=== PATIENT | male | born 1975 | race Hispanic/Latino ===

== ENCOUNTER 2017-05-22 18:49 | Observation (INO) | payer OTHER ==
[2017-05-22] MEDS ORDERED: Sodium Chloride 0.9% 1,000 ML IV STA (19:40)
[2017-05-22] MEDS ORDERED: Iohexol 240 (50 ml) PO ONE (19:41)
[2017-05-22 20:25] LABS: VENOUS BLOOD GAS BASE EXCESS 2.7 mmol/L (0.0-2.0); VENOUS BLOOD GAS PCO2 44 mmHg (40-60); VENOUS BLOOD GAS PO2 33 mm/Hg (30-55); VENOUS BLOOD PH 7.41 (7.32-7.43)
[2017-05-22 20:26] LABS: BASO # 0.1 K/uL (0.0-0.2); BASO % 0.5 % (0.0-2.0); EOS # 0.2 K/uL (0.0-0.7); EOS % 1.4 % (0.0-4.0); HEMOGLOBIN 15.5 g/dL (12.0-18.0); LYMPH % 14.5 % (20.0-40.0); MEAN CELL VOLUME 89.6 fl (80.0-94.0); MEAN CORPUSCULAR HEMOGLOBIN 30.1 pg (27.0-31.0); MEAN CORPUSCULAR HGB CONC 33.6 g/dL (33.0-37.0); MONO # 1.2 K/uL (0.0-0.8); MONO % 8.5 % (0.0-10.0); NEUT # 10.2 K/uL (1.8-7.0); NEUT % 75.1 % (50.0-75.0); NRBC % 0.1 % (0.0-0.0); RBC 5.15 Mil/uL (4.40-5.90); RED CELL DISTRIBUTION WIDTH 12.3 % (11.5-14.5); WHITE BLOOD COUNT 13.5 K/uL (4.8-10.8)
[2017-05-22] MEDS ORDERED: Iohexol 240 (50 ml) ONE (20:31)
--- NOTE | 2017-05-22 20:37 | ED PDOC ---
"HPI: Abdomen Time Seen by Provider: 05/22/17 19:28 Chief Complaint (Nursing): Abdominal Pain Chief Complaint (Provider): Abdominal Pain History Per: Patient History/Exam Limitations: no limitations Onset/Duration Of Symptoms: Days (x3) Current Symptoms Are (Timing): Still Present Additional Complaint(s): 41 year old male with no significant past medical history, who presents to the ED after being referred by Buchanan for leukocytosis and abdominal pain x3 days. States since Friday he has had diffuse crampy abdominal pain that's worse on his left side. Says current abdominal pain is 6/10. Reports 1 episode of vomiting yesterday, and no appetite or bowel movements today. Reports urinating today with no urinary symptoms. States tmax at home was 99. Reports taking Zofran and as prescribed by Buchanan. Past Medical History Reviewed: Historical Data, Nursing Documentation, Vital Signs Vital Signs: Last Vital Signs Temp 98.4 F 05/23/17 01:33 Pulse 86 05/23/17 01:33 Resp 20 05/23/17 01:33 BP 145/90 05/23/17 01:33 Pulse Ox 96 05/23/17 01:33 - Medical History PMH: No Chronic Diseases - Surgical History Surgical History: Hernia Repair (inguinal, 20 years ago) - Family History Family History: States: Unknown Family Hx - Home Medications Home Medications: Ambulatory Orders Medication Instructions Recorded No Known Home Med 05/23/17 - Allergies Allergies/Adverse Reactions: Allergies Allergy/AdvReac Type Severity Reaction Status Date / Time No Known Allergies Allergy Verified 05/22/17 19:01 Review of Systems ROS Statement: Except As Marked, All Systems Reviewed And Found Negative Constitutional: Negative for: Fever Gastrointestinal: Positive for: Vomiting, Abdominal Pain Genitourinary Male: Negative for: Dysuria, Frequency, Incontinence, Hematuria Physical Exam - Reviewed Nursing Documentation Reviewed: Yes - Physical Exam Appears: Positive for: Well, Non-toxic, No Acute Distress Head Exam: Positive for: ATRAUMATIC, NORMAL INSPECTION, NORMOCEPHALIC Skin: Positive for: Normal Color, Warm, Dry Eye Exam: Positive for: EOMI, Normal appearance, PERRL Neck: Positive for: Normal, Painless ROM, Supple Cardiovascular/Chest: Positive for: Regular Rate, Rhythm. Negative for: Murmur Respiratory: Positive for: Normal Breath Sounds. Negative for: Respiratory Distress Gastrointestinal/Abdominal: Positive for: Tenderness (mild diffuse left worse than right, no RLQ). Negative for: Mass, Guarding, Rebound Back: Positive for: Normal Inspection. Negative for: L CVA Tenderness, R CVA Tenderness, Vertebral Tenderness Extremity: Positive for: Normal ROM. Negative for: Pedal Edema, Deformity Neurologic/Psych: Positive for: Alert, Oriented (x3). Negative for: Motor/ Sensory Deficits - Laboratory Results Result Diagrams: 05/22/17 20:13 05/22/17 20:13 - ECG O2 Sat by Pulse Oximetry: 98 (RA) Pulse Ox Interpretation: Normal Medical Decision Making Medical Decision Making: Time: 19:40 Patient referred by Buchanan for abdominal pain and leukocytosis. Concerned for possible diverticulitis vs colitis vs less likely pancreatitis or appendicitis. Will require blood work and CT. Addendum created by Rakan Caraballo MD on 05/22/2017 11:57 PM Eastern Time ([place] & [place]) THIS REPORT CONTAINS FINDINGS THAT MAY BE CRITICAL TO PATIENT CARE. The findings were verbally communicated via telephone conference with João Munoz at 11:57 PM EDT on 05/22/2017. The findings were acknowledged and understood. Initial Report created on 05/22/2017 11:52 PM Eastern Time ([place] & [place]) EXAM: CT Abdomen and Pelvis With Intravenous Contrast CLINICAL HISTORY: 41 years old, male; Pain; Abdominal pain; Localized; Left; Prior surgery; Surgery date: 6+ months; Surgery type: Inguinal hernia repair 20yrs ago; Additional info: Diffuse abd pain, l sided>r sided TECHNIQUE: Axial computed tomography images of the abdomen and pelvis with intravenous contrast. All CT scans at this facility use one or more dose reduction techniques, viz.: automated exposure control; ma/kV adjustment per patient size (including targeted exams where dose is matched to indication; i.e. head); or iterative reconstruction technique. Coronal and sagittal reformatted images were created and reviewed. CONTRAST: 95 mL of [id number] administered intravenously. COMPARISON: No relevant prior studies available. FINDINGS: Lower thorax: Minimal atelectasis. Small hiatal hernia. ABDOMEN: Liver: Probable mild fatty infiltration. < 0.5 cm lesion. Gallbladder and bile ducts: No calcified stones. No ductal dilation. Pancreas: Mild stranding/fascial thickening about tail of pancreas. No ductal dilation. No definite pancreatic necrosis. No discrete peripancreatic collection. Spleen: No splenomegaly. Adrenals: No mass. CUATE LIGHT | Final Radiology Report CONFIDENTIALITY STATEMENT This report is intended only for use by the referring physician, and only in accordance with law. If you received this in error, call [phone]. Page 2 of 2 Kidneys and ureters: 2.5 x 3.0 by 3.0 cm heterogeneous lesion within right kidney. No hydronephrosis. Stomach and bowel: Few scattered diverticula within colon. No associated inflammatory stranding. Segmental areas of probable underdistention of LEFT colon. No definite mural thickening. No obstruction. Appendix: Normal caliber. No inflammation. PELVIS: Bladder: Unremarkable. Reproductive: Unremarkable as visualized. ABDOMEN and PELVIS: Intraperitoneal space: No significant fluid collection. No free air. Bones/joints: No acute fracture. Soft tissues: Tiny umbilical hernia containing fat. Vasculature: Patent splenic artery and vein. No aneurysm. Lymph nodes: No pathologically enlarged lymph nodes. IMPRESSION: 1. Acute pancreatitis. 2. Right kidney lesion, indeterminate. Malignancy not excluded. Recommend MRI. 3. Liver lesion. For patients with low to average risk of malignancy, no further follow-up is necessary. For patients with high risk of malignancy (known malignancy that can metastasize or other risk factors), recommend follow-up abdominal CT or MR in 6 months. 4. Incidental/non-acute findings are described above. Spoke with patient regarding his results. States he still feels ill. Discussed case with Dr. Vernon (GI) who states to hydrate patient overnight and can be admitted OBS for re-eval in the AM for pancreatitis. [facility] admit to [facility]. Scribe Attestation: Documented by Jonathan Ford, acting as a scribe for João Fuentes MD. Provider Scribe Attestation: All medical record entries made by the Scribe were at my direction and personally dictated by me. I have reviewed the chart and agree that the record accurately reflects my personal performance of the history, physical exam, medical decision making, and the department course for this patient. I have also personally directed, reviewed, and agree with the discharge instructions and disposition. Disposition - Clinical Impression Clinical Impression: Pancreatitis - Disposition Disposition Time: 00:00 Condition: FAIR"
[2017-05-22 20:43] LABS: ALB/GLOB RATIO 1.2 (1.0-2.1); ALBUMIN 4.5 g/dL (3.5-5.0); ALT/SGPT 60 U/L (21-72); AST/SGOT 26 U/L (17-59); BLOOD UREA NITROGEN 14 mg/dl (9-20); CALCIUM 9.6 mg/dL (8.4-10.2); GFR AFRICAN-AMERICAN > 60; GFR NON-AFRICAN AMERICAN > 60; LIPASE 255 U/L (23-300)
[2017-05-22 20:49] LABS: URINE BILIRUBIN NEGATIVE (NEGATIVE); URINE BLOOD NEGATIVE (NEGATIVE); URINE CLARITY CLEAR (Clear); URINE COLOR YELLOW (YELLOW); URINE GLUCOSE (UA) NEG (Normal); URINE LEUKOCYTE ESTERASE NEG Leu/uL (Negative); URINE PROTEIN 30 mg/dL (NEGATIVE); URINE UROBILINOGEN 0.2-1.0 mg/dL (0.2-1.0)
[2017-05-22] MEDS ORDERED: Iohexol 300 100 ML IJ ONE (21:24)
[2017-05-23] MEDS ORDERED: Lactated Ringer's 1,000 ML IV STA (00:07)
[2017-05-23 01:34] VITALS: RESP 20
[2017-05-23 08:11] VITALS: BP 153/95; PULSE 100; TEMP 98.3; O2SAT 95
--- NOTE | 2017-05-23 08:29 | CP.PCM.CON ---
<Mauricio Viramontes - Last Filed: 05/23/17 09:22> History of Present Illness - History of Present Illness History of Present Illness: PGY5 GI Fellow Consult Note Patient is a 41yo male without significant past medical history who presented to the ED for abdominal pain. The patient developed diffuse, cramping abdominal pain on Friday morning without obvious preceding event and states he was in his usual state of health on Friday. He suddenly noticed dull, diffuse cramping which has become more constant and severe over the last 3 days. On questioning, he also admits that he has been taking two Tums nightly for the last 1-2 months for "heartburn" and reflux symptoms that have been waking him from sleep. Admits to occasional LUQ abdominal pain and decreased appetite when this occurs. He went to his PCP who noted leukocytosis on his CBC and referred him to the ED for continued care. Per the ED report, a CT was performed and revealed some slight peripancreatic stranding near the tail of the pancreas possibly consistent with acute pancreatitis. Patient denies any recent EtOH use , does mention a possibly history of dyslipidemia. The patient was given IVF@ 200cc/hr and admitted to the floor. Currently, he states his pain is improved and his appetite improved. PMHx: See HPI PSHx: Left inguinal hernia repair FHx: Discussed with patient and denies any significant family history Social: Rare EtOH use (none recent), denies tobacco, illicit drug use Endo: No prior endoscopic evaluations 12 system ROS performed and negative except where stated. Past Patient History - Past Medical History & Family History Past Medical History?: No - Past Social History Smoking Status: Never Smoked - MUSCULOSKELETAL/RHEUMATOLOGICAL Hx Falls: No - PSYCHIATRIC Hx Substance Use: No - SURGICAL HISTORY Hx Herniorrhaphy: Yes (inguinal,20 yrs ago) - ANESTHESIA Hx Anesthesia: Yes Hx Anesthesia Reactions: No Meds Allergies/Adverse Reactions: Allergies Allergy/AdvReac Type Severity Reaction Status Date / Time No Known Allergies Allergy Verified 05/22/17 19:01 - Medications Medications: Current Medications Acetaminophen (Tylenol 325mg Tab) 650 mg PO Q4 PRN PRN Reason: Headache Lactated Ringer's (Lactated Ringer's) 1,000 mls @ 200 mls/hr IV .Q5H ABDULKADIR Ketorolac Tromethamine (Toradol) 15 mg IVP Q6 PRN PRN Reason: pain 6-10 Ondansetron HCl (Zofran Inj) 4 mg IVP Q6 PRN PRN Reason: Nausea/Vomiting Pantoprazole Sodium (Protonix Ec Tab) 40 mg PO DAILY ABDULKADIR Physical Exam - Constitutional Appears: Non-toxic, No Acute Distress - Eye Exam Eye Exam: EOMI, PERRL - ENT Exam ENT Exam: Mucous Membranes Moist - Respiratory Exam Respiratory Exam: Clear to Auscultation Bilateral. absent: Rales, Rhonchi, Wheezes - Cardiovascular Exam Cardiovascular Exam: RRR, +S1, +S2 - GI/Abdominal Exam GI & Abdominal Exam: Normal Bowel Sounds, Soft, Tenderness (epigastric, LUQ). absent: Distended, Firm, Guarding, Organomegaly, Rigid - Extremities Exam Extremities exam: Positive for: normal inspection. Negative for: pedal edema - Neurological Exam Neurological exam: Alert, Oriented x3 - Psychiatric Exam Psychiatric exam: Normal Affect, Normal Mood - Skin Skin Exam: Dry, Warm Results - Vital Signs Recent Vital Signs: Last Vital Signs Temp 98.3 F 05/23/17 08:10 Pulse 100 H 05/23/17 08:10 Resp 20 05/23/17 08:10 BP 153/95 H 05/23/17 08:10 Pulse Ox 95 05/23/17 08:10 - Labs Result Diagrams: 05/23/17 08:58 05/23/17 08:58 Labs: Laboratory Results - last 24 hr 05/22/17 05/22/17 05/22/17 20:13 20:13 20:19 WBC 13.5 H RBC 5.15 Hgb 15.5 Hct 46.2 MCV 89.6 MCH 30.1 MCHC 33.6 RDW 12.3 Plt Count 238 MPV 9.0 Neut % (Auto) 75.1 H Lymph % (Auto) 14.5 L Waller % (Auto) 8.5 Eos % (Auto) 1.4 Baso % (Auto) 0.5 Neut # (Auto) 10.2 H Lymph # (Auto) 2.0 Waller # (Auto) 1.2 H Eos # (Auto) 0.2 Baso # (Auto) 0.1 pO2 33 VBG pH 7.41 VBG pCO2 44 VBG HCO3 26.1 VBG Total CO2 29.3 H VBG O2 Sat (Calc) 70.3 H VBG Base Excess 2.7 H VBG Potassium 4.0 Glucose 90 Lactate 1.6 FiO2 21.0 Sodium 144 139.0 Potassium 3.9 Chloride 99 104.0 Carbon Dioxide 23 Anion Gap 26 H BUN 14 Creatinine 0.8 Est GFR ( Amer) > 60 Est GFR (Non-Af Amer) > 60 Random Glucose 93 Calcium 9.6 Total Bilirubin 0.7 AST 26 ALT 60 Alkaline Phosphatase 101 Total Protein 8.3 H Albumin 4.5 Globulin 3.8 Albumin/Globulin Ratio 1.2 Lipase 255 Venous Blood Potassium 4.0 Urine Color Urine Clarity Urine pH Ur Specific [place] Urine Protein Urine Glucose (UA) Urine Ketones Urine Blood Urine Nitrate Urine Bilirubin Urine Urobilinogen Ur Leukocyte Esterase Urine RBC (Auto) Urine Microscopic WBC 05/22/17 20:21 WBC RBC Hgb Hct MCV MCH MCHC RDW Plt Count MPV Neut % (Auto) Lymph % (Auto) Waller % (Auto) Eos % (Auto) Baso % (Auto) Neut # (Auto) Lymph # (Auto) Waller # (Auto) Eos # (Auto) Baso # (Auto) pO2 VBG pH VBG pCO2 VBG HCO3 VBG Total CO2 VBG O2 Sat (Calc) VBG Base Excess VBG Potassium Glucose Lactate FiO2 Sodium Potassium Chloride Carbon Dioxide Anion Gap BUN Creatinine Est GFR ( Amer) Est GFR (Non-Af Amer) Random Glucose Calcium Total Bilirubin AST ALT Alkaline Phosphatase Total Protein Albumin Globulin Albumin/Globulin Ratio Lipase Venous Blood Potassium Urine Color Yellow Urine Clarity Clear Urine pH 6.0 Ur Specific [place] 1.025 Urine Protein 30 Urine Glucose (UA) Neg Urine Ketones 20 Urine Blood Negative Urine Nitrate Negative Urine Bilirubin Negative Urine Urobilinogen 0.2-1.0 Ur Leukocyte Esterase Neg Urine RBC (Auto) < 1 Urine Microscopic WBC 1 Assessment & Plan - Assessment and Plan (Free Text) Assessment: Patient is a 41yo male without significant past medical history who presented to the ED for abdominal pain. -Abdominal pain; ddx includes acute pancreatitis, PUD, less likely infectious enteritis/colitis Plan: -Lipase WNL; report of CT from ED showing mild pancreatic tail stranding suggesting acute pancreatitis -Given mild pain/imaging - may have case of mild acute pancreatitis, responding appropriately to IVF resuscitation -Agree with IVF @200cc/hr -Denies EtOH use, no Vit/mineral supplements or OTC meds; no new medications to suggest medication induced pancreatitis -Check lipid panel -Consider outpatient U/S RUQ to R/O gallstones which can be missed on CT; however blood work not supportive of this diagnosis -Advance diet as tolerated -Recommend PPI 40mg PO QAM 30 min before breakfast for one month given dyspepsia , nighttime reflux symptoms -Outpatient GI follow up recommended with possible need for EGD in the future - Date & Time Date: 05/23/17 Time: 07:20 <Jose Alfredo Vernon - Last Filed: 05/23/17 14:43> Meds - Medications Medications: Current Medications Acetaminophen (Tylenol 325mg Tab) 650 mg PO Q4 PRN PRN Reason: Headache Last Admin: 05/23/17 13:22 Dose: 650 mg Atorvastatin Calcium (Lipitor) 20 mg PO HS ABDULKADIR Lactated Ringer's (Lactated Ringer's) 1,000 mls @ 200 mls/hr IV .Q5H [facility] Last Admin: 05/23/17 08:37 Dose: 200 mls/hr Ketorolac Tromethamine (Toradol) 15 mg IVP Q6 PRN PRN Reason: pain 6-10 Ondansetron HCl (Zofran Inj) 4 mg IVP Q6 PRN PRN Reason: Nausea/Vomiting Pantoprazole Sodium (Protonix Ec Tab) 40 mg PO DAILY [facility] Last Admin: 05/23/17 08:32 Dose: 40 mg Results - Vital Signs Recent Vital Signs: Last Vital Signs Temp 98.3 F 05/23/17 08:10 Pulse 100 H 05/23/17 08:10 Resp 20 05/23/17 08:10 BP 153/95 H 05/23/17 08:10 Pulse Ox 95 05/23/17 08:10 - Labs Result Diagrams: 05/23/17 08:58 05/23/17 08:58 Labs: Laboratory Results - last 24 hr 05/22/17 05/22/17 05/22/17 20:13 20:13 20:19 WBC 13.5 H RBC 5.15 Hgb 15.5 Hct 46.2 MCV 89.6 MCH 30.1 MCHC 33.6 RDW 12.3 Plt Count 238 MPV 9.0 Neut % (Auto) 75.1 H Lymph % (Auto) 14.5 L Waller % (Auto) 8.5 Eos % (Auto) 1.4 Baso % (Auto) 0.5 Neut # (Auto) 10.2 H Lymph # (Auto) 2.0 Waller # (Auto) 1.2 H Eos # (Auto) 0.2 Baso # (Auto) 0.1 pO2 33 VBG pH 7.41 VBG pCO2 44 VBG HCO3 26.1 VBG Total CO2 29.3 H VBG O2 Sat (Calc) 70.3 H VBG Base Excess 2.7 H VBG Potassium 4.0 Glucose 90 Lactate 1.6 FiO2 21.0 Sodium 144 139.0 Potassium 3.9 Chloride 99 104.0 Carbon Dioxide 23 Anion Gap 26 H BUN 14 Creatinine 0.8 Est GFR ( Amer) > 60 Est GFR (Non-Af Amer) > 60 Random Glucose 93 Calcium 9.6 Total Bilirubin 0.7 AST 26 ALT 60 Alkaline Phosphatase 101 Total Protein 8.3 H Albumin 4.5 Globulin 3.8 Albumin/Globulin Ratio 1.2 Triglycerides Cholesterol LDL Cholesterol Direct HDL Cholesterol Lipase 255 Venous Blood Potassium 4.0 Urine Color Urine Clarity Urine pH Ur Specific [place] Urine Protein Urine Glucose (UA) Urine Ketones Urine Blood Urine Nitrate Urine Bilirubin Urine Urobilinogen Ur Leukocyte Esterase Urine RBC (Auto) Urine Microscopic WBC 05/22/17 05/23/17 05/23/17 20:21 08:58 08:58 WBC 11.7 H RBC 4.58 Hgb 13.7 Hct 41.4 MCV 90.4 MCH 30.0 MCHC 33.2 RDW 12.4 Plt Count 221 MPV 8.8 Neut % (Auto) 70.4 Lymph % (Auto) 18.5 L Waller % (Auto) 7.5 Eos % (Auto) 3.1 Baso % (Auto) 0.5 Neut # (Auto) 8.2 H Lymph # (Auto) 2.2 Waller # (Auto) 0.9 H Eos # (Auto) 0.4 Baso # (Auto) 0.1 pO2 VBG pH VBG pCO2 VBG HCO3 VBG Total CO2 VBG O2 Sat (Calc) VBG Base Excess VBG Potassium Glucose Lactate FiO2 Sodium 140 Potassium 4.3 Chloride 101 Carbon Dioxide 24 Anion Gap 19 BUN 16 Creatinine 0.8 Est GFR ( Amer) > 60 Est GFR (Non-Af Amer) > 60 Random Glucose 79 Calcium 8.9 Total Bilirubin 0.8 AST 29 ALT 55 Alkaline Phosphatase 83 Total Protein 7.0 Albumin 3.8 Globulin 3.2 Albumin/Globulin Ratio 1.2 Triglycerides Cholesterol LDL Cholesterol Direct HDL Cholesterol Lipase 162 Venous Blood Potassium Urine Color Yellow Urine Clarity Clear Urine pH 6.0 Ur Specific [place] 1.025 Urine Protein 30 Urine Glucose (UA) Neg Urine Ketones 20 Urine Blood Negative Urine Nitrate Negative Urine Bilirubin Negative Urine Urobilinogen 0.2-1.0 Ur Leukocyte Esterase Neg Urine RBC (Auto) < 1 Urine Microscopic WBC 1 05/23/17 10:12 WBC RBC Hgb Hct MCV MCH MCHC RDW Plt Count MPV Neut % (Auto) Lymph % (Auto) Waller % (Auto) Eos % (Auto) Baso % (Auto) Neut # (Auto) Lymph # (Auto) Waller # (Auto) Eos # (Auto) Baso # (Auto) pO2 VBG pH VBG pCO2 VBG HCO3 VBG Total CO2 VBG O2 Sat (Calc) VBG Base Excess VBG Potassium Glucose Lactate FiO2 Sodium Potassium Chloride Carbon Dioxide Anion Gap BUN Creatinine Est GFR ( Amer) Est GFR (Non-Af Amer) Random Glucose Calcium Total Bilirubin AST ALT Alkaline Phosphatase Total Protein Albumin Globulin Albumin/Globulin Ratio Triglycerides 78 Cholesterol 241 H LDL Cholesterol Direct 184 H HDL Cholesterol 36 Lipase Venous Blood Potassium Urine Color Urine Clarity Urine pH Ur Specific [place] Urine Protein Urine Glucose (UA) Urine Ketones Urine Blood Urine Nitrate Urine Bilirubin Urine Urobilinogen Ur Leukocyte Esterase Urine RBC (Auto) Urine Microscopic WBC Assessment & Plan - Assessment and Plan (Free Text) Plan: Patient seen and examined. Agree with above assessment.
[2017-05-23] MEDS: Lactated Ringer's 1,000 ML IV SCH ×2 (08:37→15:39)
[2017-05-23] MEDS ORDERED: Pantoprazole 40 mg EC Tab PO SCH (09:00)
[2017-05-23 09:04] LABS: BASO # 0.1 K/uL (0.0-0.2); BASO % 0.5 % (0.0-2.0); EOS # 0.4 K/uL (0.0-0.7); EOS % 3.1 % (0.0-4.0); HEMOGLOBIN 13.7 g/dL (12.0-18.0); LYMPH # 2.2 K/uL (1.0-4.3); LYMPH % 18.5 % (20.0-40.0); MEAN CELL VOLUME 90.4 fl (80.0-94.0); MEAN CORPUSCULAR HGB CONC 33.2 g/dL (33.0-37.0); MEAN PLATELET VOLUME 8.8 fl (7.2-11.7); MONO # 0.9 K/uL (0.0-0.8); MONO % 7.5 % (0.0-10.0); NEUT # 8.2 K/uL (1.8-7.0); NEUT % 70.4 % (50.0-75.0); RBC 4.58 Mil/uL (4.40-5.90); RED CELL DISTRIBUTION WIDTH 12.4 % (11.5-14.5); WHITE BLOOD COUNT 11.7 K/uL (4.8-10.8)
--- NOTE | 2017-05-23 09:09 | CT ---
PROCEDURE: CT Abdomen and Pelvis with contrast HISTORY: diffuse abd pain, L sided>R sided COMPARISON: None. TECHNIQUE: Following oral and intravenous contrast administration, a CT examination of the abdomen and pelvis performed from the domes of the diaphragms to the symphysis pubis with reformatted datasets provided not only axial but also sagittal and coronal series. Contrast dose: Omnipaque 300, 95 cc Radiation dose: Total exam DLP = 1070.27 mGy-cm. This CT exam was performed using one or more of the following dose reduction techniques: Automated exposure control, adjustment of the mA and/or kV according to patient size, and/or use of iterative reconstruction technique. FINDINGS: LOWER THORAX: Trace atelectasis identified in the bilateral dependent lung bases. A small hiatal hernia is identified. LIVER: There is a tiny lucency under 1 cm size at the dome of liver, too small to characterize. GALLBLADDER AND BILE DUCTS: Unremarkable. PANCREAS: Pancreas does not appear enlarged and no pancreatic duct dilatation or definitive masses demonstrated, however, there is limited streaky. Pancreatic reaction at the distal body and tail suspicious for potential pancreatitis. Clinically correlate further. No evidence of pancreatic necrosis, pseudocyst or local peripancreatic fluid collection at this time. SPLEEN: Unremarkable. ADRENALS: Unremarkable. No mass. KIDNEYS AND URETERS: Predominately solid lesion is identified at the upper pole right kidney measuring 3.2 x 2.8 cm with the bilateral kidneys otherwise unremarkable. Further characterization by MRI can be performed. Follow-up urological consultation is advised. VASCULATURE: Unremarkable. No aortic aneurysm. BOWEL: Unremarkable. No obstruction. No gross mural thickening. APPENDIX: Normal appendix. PERITONEUM: Unremarkable. No free fluid. No free air. LYMPH NODES: Unremarkable. No enlarged lymph nodes. BLADDER: Unremarkable. REPRODUCTIVE: Unremarkable. BONES: No acute fracture. OTHER FINDINGS: None. IMPRESSION: 1. Findings suspicious for mild pancreatitis as discussed above. No pseudocyst or peripancreatic fluid collection noted. No radiodense cholelithiasis identified in the gallbladder. 2. A 3.2 cm predominantly solid lesion with some cystic components is seen at the upper pole right kidney. Follow-up MRI is advised with and without. Consider urological consultation as well. No obstructive uropathy bilaterally with the left kidney appear unremarkable. 3. Tiny lucency at the dome liver too small to characterize. Follow-up CT can be performed if there is a high risk for malignancy in this patient. Concordant preliminary report from [facility], 05/22/2017.
[2017-05-23 09:22] LABS: ALB/GLOB RATIO 1.2 (1.0-2.1); ALBUMIN 3.8 g/dL (3.5-5.0); ALT/SGPT 55 U/L (21-72); AST/SGOT 29 U/L (17-59); BLOOD UREA NITROGEN 16 mg/dl (9-20); CALCIUM 8.9 mg/dL (8.4-10.2); GFR AFRICAN-AMERICAN > 60; GFR NON-AFRICAN AMERICAN > 60; LIPASE 162 U/L (23-300)
[2017-05-23 10:36] LABS: HDL CHOLESTEROL 36 MG/DL (30-70)
[2017-05-23 10:46] LABS: LDL CHOLESTEROL 184 mg/dL (0-129)
--- NOTE | 2017-05-23 11:22 | CP.PCM.HP ---
History of Present Illness - History of Present Illness History of Present Illness: pt admitted for pancreatitis. ct results noted. gi consult appriciated. pt c/o 2 days of abd pain [place]. n/v yesterday. no f/c, diarrhea bw noted. wbc trending down. lipids elevated. Present on Admission - Present on Admission Any Indicators Present on Admission: No Review of Systems - Gastrointestinal Gastrointestinal: As Per HPI, Abdominal Pain, Nausea, Vomiting Past Patient History - Past Medical History & Family History Past Medical History?: No - Past Social History Smoking Status: Never Smoked - MUSCULOSKELETAL/RHEUMATOLOGICAL Hx Falls: No - PSYCHIATRIC Hx Substance Use: No - SURGICAL HISTORY Hx Herniorrhaphy: Yes (inguinal,20 yrs ago) - ANESTHESIA Hx Anesthesia: Yes Hx Anesthesia Reactions: No Meds Allergies/Adverse Reactions: Allergies Allergy/AdvReac Type Severity Reaction Status Date / Time No Known Allergies Allergy Verified 05/22/17 19:01 Physical Exam - Constitutional Appears: Well, Non-toxic, No Acute Distress - Head Exam Head Exam: ATRAUMATIC, NORMAL INSPECTION, NORMOCEPHALIC - Eye Exam Eye Exam: EOMI, Normal appearance, PERRL Pupil Exam: NORMAL ACCOMODATION, PERRL - ENT Exam ENT Exam: Mucous Membranes Moist, Normal Exam - Neck Exam Neck exam: Positive for: Normal Inspection - Respiratory Exam Respiratory Exam: Clear to Auscultation Bilateral, NORMAL BREATHING PATTERN - Cardiovascular Exam Cardiovascular Exam: REGULAR RHYTHM, RRR, +S1, +S2 - GI/Abdominal Exam GI & Abdominal Exam: Normal Bowel Sounds, Soft. absent: Tenderness - Extremities Exam Extremities exam: Positive for: full ROM, normal capillary refill, normal inspection, pedal pulses present - Back Exam Back exam: NORMAL INSPECTION - Neurological Exam Neurological exam: Alert, CN II-XII Intact, Normal Gait, Oriented x3, Reflexes Normal - Psychiatric Exam Psychiatric exam: Normal Affect, Normal Mood - Skin Skin Exam: Dry, Intact, Normal Color, Warm Results - Vital Signs Recent Vital Signs: Last Vital Signs Temp 98.3 F 05/23/17 08:10 Pulse 100 H 05/23/17 08:10 Resp 20 05/23/17 08:10 BP 153/95 H 05/23/17 08:10 Pulse Ox 95 05/23/17 08:10 - Labs Result Diagrams: 05/23/17 08:58 03/16/18 08:58 Labs: Laboratory Results - last 24 hr 05/22/17 05/22/17 05/22/17 20:13 20:13 20:19 WBC 13.5 H RBC 5.15 Hgb 15.5 Hct 46.2 MCV 89.6 MCH 30.1 MCHC 33.6 RDW 12.3 Plt Count 238 MPV 9.0 Neut % (Auto) 75.1 H Lymph % (Auto) 14.5 L [place] % (Auto) 8.5 Eos % (Auto) 1.4 Baso % (Auto) 0.5 Neut # (Auto) 10.2 H Lymph # (Auto) 2.0 [place] # (Auto) 1.2 H Eos # (Auto) 0.2 Baso # (Auto) 0.1 pO2 33 VBG pH 7.41 VBG pCO2 44 VBG HCO3 26.1 VBG Total CO2 29.3 H VBG O2 Sat (Calc) 70.3 H VBG Base Excess 2.7 H VBG Potassium 4.0 Glucose 90 Lactate 1.6 FiO2 21.0 Sodium 144 139.0 Potassium 3.9 Chloride 99 104.0 Carbon Dioxide 23 Anion Gap 26 H BUN 14 Creatinine 0.8 Est GFR ( Amer) > 60 Est GFR (Non-Af Amer) > 60 Random Glucose 93 Calcium 9.6 Total Bilirubin 0.7 AST 26 ALT 60 Alkaline Phosphatase 101 Total Protein 8.3 H Albumin 4.5 Globulin 3.8 Albumin/Globulin Ratio 1.2 Triglycerides Cholesterol LDL Cholesterol Direct HDL Cholesterol Lipase 255 Venous Blood Potassium 4.0 Urine Color Urine Clarity Urine pH Ur Specific Price Urine Protein Urine Glucose (UA) Urine Ketones Urine Blood Urine Nitrate Urine Bilirubin Urine Urobilinogen Ur Leukocyte Esterase Urine RBC (Auto) Urine Microscopic WBC 05/22/17 05/23/17 05/23/17 20:21 08:58 08:58 WBC 11.7 H RBC 4.58 Hgb 13.7 Hct 41.4 MCV 90.4 MCH 30.0 MCHC 33.2 RDW 12.4 Plt Count 221 MPV 8.8 Neut % (Auto) 70.4 Lymph % (Auto) 18.5 L [place] % (Auto) 7.5 Eos % (Auto) 3.1 Baso % (Auto) 0.5 Neut # (Auto) 8.2 H Lymph # (Auto) 2.2 [place] # (Auto) 0.9 H Eos # (Auto) 0.4 Baso # (Auto) 0.1 pO2 VBG pH VBG pCO2 VBG HCO3 VBG Total CO2 VBG O2 Sat (Calc) VBG Base Excess VBG Potassium Glucose Lactate FiO2 Sodium 140 Potassium 4.3 Chloride 101 Carbon Dioxide 24 Anion Gap 19 BUN 16 Creatinine 0.8 Est GFR ( Amer) > 60 Est GFR (Non-Af Amer) > 60 Random Glucose 79 Calcium 8.9 Total Bilirubin 0.8 AST 29 ALT 55 Alkaline Phosphatase 83 Total Protein 7.0 Albumin 3.8 Globulin 3.2 Albumin/Globulin Ratio 1.2 Triglycerides Cholesterol LDL Cholesterol Direct HDL Cholesterol Lipase 162 Venous Blood Potassium Urine Color Yellow Urine Clarity Clear Urine pH 6.0 Ur Specific Price 1.025 Urine Protein 30 Urine Glucose (UA) Neg Urine Ketones 20 Urine Blood Negative Urine Nitrate Negative Urine Bilirubin Negative Urine Urobilinogen 0.2-1.0 Ur Leukocyte Esterase Neg Urine RBC (Auto) < 1 Urine Microscopic WBC 1 05/23/17 10:12 WBC RBC Hgb Hct MCV MCH MCHC RDW Plt Count MPV Neut % (Auto) Lymph % (Auto) [place] % (Auto) Eos % (Auto) Baso % (Auto) Neut # (Auto) Lymph # (Auto) [place] # (Auto) Eos # (Auto) Baso # (Auto) pO2 VBG pH VBG pCO2 VBG HCO3 VBG Total CO2 VBG O2 Sat (Calc) VBG Base Excess VBG Potassium Glucose Lactate FiO2 Sodium Potassium Chloride Carbon Dioxide Anion Gap BUN Creatinine Est GFR ( Amer) Est GFR (Non-Af Amer) Random Glucose Calcium Total Bilirubin AST ALT Alkaline Phosphatase Total Protein Albumin Globulin Albumin/Globulin Ratio Triglycerides 78 Cholesterol 241 H LDL Cholesterol Direct 184 H HDL Cholesterol 36 Lipase Venous Blood Potassium Urine Color Urine Clarity Urine pH Ur Specific Price Urine Protein Urine Glucose (UA) Urine Ketones Urine Blood Urine Nitrate Urine Bilirubin Urine Urobilinogen Ur Leukocyte Esterase Urine RBC (Auto) Urine Microscopic WBC Assessment & Plan (1) Dyslipidemia Assessment and Plan: start lipitor diet control Status: Acute (2) DVT prophylaxis Assessment and Plan: scd and ae hose ambulation Status: Acute (3) Abnormal CT of the abdomen Assessment and Plan: f/u outpt gi egd, f/u imaging Status: Acute (4) Pancreatitis Assessment and Plan: pain control ivf gi po as jolynn ppi Status: Acute Decision To Admit - Pt Status Changed To: Hospital Disposition Of: Observation - . Bed Request Type: Med/Surg Admitting Physician: Torrie Rubio
--- NOTE | 2017-05-26 15:04 | CP.PCM.DIS ---
Provider - Provider Date of Admission: 05/23/17 00:06 Attending physician: Torrie Rubio MD Time Spent in preparation of Discharge (in minutes): 15 Diagnosis - Discharge Diagnosis (1) Dyslipidemia Status: Acute (2) DVT prophylaxis Status: Acute (3) Abnormal CT of the abdomen Status: Acute (4) Pancreatitis Status: Acute Hospital Course - Lab Results Lab Results: Micro Results 05/22/17 20:13 Blood Blood Culture - Preliminary NO GROWTH AFTER 3 DAYS 05/22/17 20:21 Urine,Clean Catch Urine Culture - Final No Growth (<1,000 CFU/ML) Most Recent Lab Values WBC 11.7 K/uL (4.8-10.8) H 05/23/17 08:58 RBC 4.58 Mil/uL (4.40-5.90) 05/23/17 08:58 Hgb 13.7 g/dL (12.0-18.0) 05/23/17 08:58 Hct 41.4 % (35.0-51.0) 05/23/17 08:58 MCV 90.4 fl (80.0-94.0) 05/23/17 08:58 MCH 30.0 pg (27.0-31.0) 05/23/17 08:58 MCHC 33.2 g/dL (33.0-37.0) 05/23/17 08:58 RDW 12.4 % (11.5-14.5) 05/23/17 08:58 Plt Count 221 K/uL (130-400) 05/23/17 08:58 MPV 8.8 fl (7.2-11.7) 05/23/17 08:58 Neut % (Auto) 70.4 % (50.0-75.0) 05/23/17 08:58 Lymph % (Auto) 18.5 % (20.0-40.0) L 05/23/17 08:58 [place] % (Auto) 7.5 % (0.0-10.0) 05/23/17 08:58 Eos % (Auto) 3.1 % (0.0-4.0) 05/23/17 08:58 Baso % (Auto) 0.5 % (0.0-2.0) 05/23/17 08:58 Neut # (Auto) 8.2 K/uL (1.8-7.0) H 05/23/17 08:58 Lymph # (Auto) 2.2 K/uL (1.0-4.3) 05/23/17 08:58 [place] # (Auto) 0.9 K/uL (0.0-0.8) H 05/23/17 08:58 Eos # (Auto) 0.4 K/uL (0.0-0.7) 05/23/17 08:58 Baso # (Auto) 0.1 K/uL (0.0-0.2) 05/23/17 08:58 pO2 33 mm/Hg (30-55) 05/22/17 20:19 VBG pH 7.41 (7.32-7.43) 05/22/17 20:19 VBG pCO2 44 mmHg (40-60) 05/22/17 20:19 VBG HCO3 26.1 mmol/L 05/22/17 20:19 VBG Total CO2 29.3 mmol/L (22-28) H 05/22/17 20:19 VBG O2 Sat (Calc) 70.3 % (40-65) H 05/22/17 20:19 VBG Base Excess 2.7 mmol/L (0.0-2.0) H 05/22/17 20:19 VBG Potassium 4.0 mmol/L (3.6-5.2) 05/22/17 20:19 Sodium 139.0 mmol/L (132-148) 05/22/17 20:19 Chloride 104.0 mmol/L (98-107) 05/22/17 20:19 Glucose 90 mg/dL (75-110) 05/22/17 20:19 Lactate 1.6 mmol/L (0.7-2.1) 05/22/17 20:19 FiO2 21.0 % 05/22/17 20:19 Sodium 140 mmol/l (132-148) 05/23/17 08:58 Potassium 4.3 MMOL/L (3.6-5.0) 05/23/17 08:58 Chloride 101 mmol/L (98-107) 05/23/17 08:58 Carbon Dioxide 24 mmol/L (22-30) 05/23/17 08:58 Anion Gap 19 (10-20) 05/23/17 08:58 BUN 16 mg/dl (9-20) 05/23/17 08:58 Creatinine 0.8 mg/dl (0.8-1.5) 05/23/17 08:58 Est GFR ( Amer) > 60 05/23/17 08:58 Est GFR (Non-Af Amer) > 60 05/23/17 08:58 Random Glucose 79 mg/dL (75-110) 05/23/17 08:58 Calcium 8.9 mg/dL (8.4-10.2) 05/23/17 08:58 Total Bilirubin 0.8 mg/dl (0.2-1.3) 05/23/17 08:58 AST 29 U/L (17-59) 05/23/17 08:58 ALT 55 U/L (21-72) 05/23/17 08:58 Alkaline Phosphatase 83 U/L (38-126) 05/23/17 08:58 Total Protein 7.0 G/DL (6.3-8.2) 05/23/17 08:58 Albumin 3.8 g/dL (3.5-5.0) 05/23/17 08:58 Globulin 3.2 gm/dL (2.2-3.9) 05/23/17 08:58 Albumin/Globulin Ratio 1.2 (1.0-2.1) 05/23/17 08:58 Triglycerides 78 mg/DL (0-149) 05/23/17 10:12 Cholesterol 241 mg/dL (0-199) H 05/23/17 10:12 LDL Cholesterol Direct 184 mg/dL (0-129) H 05/23/17 10:12 HDL Cholesterol 36 MG/DL (30-70) 05/23/17 10:12 Lipase 162 U/L (23-300) 05/23/17 08:58 Venous Blood Potassium 4.0 mmol/L (3.6-5.2) 05/22/17 20:19 Urine Color Yellow (YELLOW) 05/22/17 20:21 Urine Clarity Clear (Clear) 05/22/17 20:21 Urine pH 6.0 (5.0-8.0) 05/22/17 20:21 Ur Specific [place] 1.025 (1.003-1.030) 05/22/17 20:21 Urine Protein 30 mg/dL (NEGATIVE) 05/22/17 20:21 Urine Glucose (UA) Neg mg/dL (Normal) 05/22/17 20:21 Urine Ketones 20 mg/dL (NEGATIVE) 05/22/17 20:21 Urine Blood Negative (NEGATIVE) 05/22/17 20:21 Urine Nitrate Negative (NEGATIVE) 05/22/17 20:21 Urine Bilirubin Negative (NEGATIVE) 05/22/17 20:21 Urine Urobilinogen 0.2-1.0 mg/dL (0.2-1.0) 05/22/17 20:21 Ur Leukocyte Esterase Neg [place]/uL (Negative) 05/22/17 20:21 Urine RBC (Auto) < 1 /hpf (0-3) 05/22/17 20:21 Urine Microscopic WBC 1 /hpf (0-5) 05/22/17 20:21 - Hospital Course Hospital Course: pain control ivf giconsult Discharge Exam - Head Exam Head Exam: ATRAUMATIC, NORMAL INSPECTION, NORMOCEPHALIC Discharge Plan - Discharge Medications Prescriptions: Atorvastatin [Lipitor] 20 mg PO HS #30 tab Pantoprazole [Protonix EC Tab] 40 mg PO DAILY #30 ect - Follow Up Plan Condition: FAIR Disposition: HOME/ ROUTINE Instructions: Pancreatitis (DC) Additional Instructions: follow up with your primary MD in 1 week final dx pancreatitis f/u rmg rted prn, meds per med rec, hydration, po as jolynn Referrals: Jose Alfredo Vernon MD [Staff Provider] - Willian Cummins, DNP, [employer] [Advanced Practice Nurse] -
== END 2017-05-23 16:31 | disposition home or self-care (01) ==
LOC: H.ER 18:49 → H.ERHOLD 05-23 00:06 → H.MEDSURG1 05-23 01:10
PROVIDERS: ADMIT Family Medicine; ATTEND Family Medicine
DX: K85.90 Acute pancreatitis without necrosis or infection, unspecified (principal); N28.9 Disorder of kidney and ureter, unspecified; K40.90 Unilateral inguinal hernia, without obstruction or gangrene, not specified as recurrent; R11.2 Nausea with vomiting, unspecified; R12 Heartburn; R63.0 Anorexia; E78.5 Hyperlipidemia, unspecified; K76.9 Liver disease, unspecified
CPT/HCPCS: 36415; 74177; 80053; 80061; 81003; 82803; 83690; 85025; 87040; 87086; 96361; 96374; 96375; 99284; G0378; J1885; J2270; J2405; J7040; J7120; Q9966; Q9967